=== PATIENT | female | born 1995 | race Two or more races ===

== ENCOUNTER 2022-08-29 16:32 | Emergency (ER) | payer OTHER ==
[2022-08-29 16:59] VITALS: RESP 18; BMI 33.6
[2022-08-29 18:41] VITALS: BP 107/71; PULSE 94; TEMP 98.9
[2022-08-29 19:39] LABS: BASO % 0.5 % (0-2.0); EOS % 0.9 % (0-4.5); HEMATOCRIT 40.9 % (32.4-45.2); HEMOGLOBIN 13.9 GM/dL (10.7-15.3); LYMPH % 23.5 % (8-40); MCH 29.4 pg (25.7-33.7); MEAN CELL VOLUME 86.3 fl (80-96); MEAN PLT VOLUME 7.7 fl (7.5-11.1); MONO % 7.6 % (3.8-10.2); NEUT % 67.5 % (42.8-82.8); PLATELET COUNT 263 10^3/uL (134-434); RBC 4.74 M/mm3 (3.60-5.2)
[2022-08-29 19:44] LABS: EPI CELLS >36 /uL (0-25.1); HYALINE CASTS 1 /uL (0-3.1); PH,URINE 5.5 (5.0-8.0); URINE APPEARANCE CLEAR; URINE BILIRUBIN NEGATIVE (NEGATIVE); URINE COLOR YELLOW; URINE GLUCOSE (UA) NEGATIVE (NEGATIVE); URINE KETONE NEGATIVE (NEGATIVE); URINE LEUK ESTERASE TRACE (NEGATIVE); URINE NITRITE NEGATIVE (NEGATIVE); URINE PROTEIN 1+ (NEGATIVE); URINE RBC 1496 /uL (0-23.9); URINE UROBILINOGEN 0.2 mg/dL (0.2-1.0); URINE WBC 48 /uL (0-25.8)
[2022-08-29 19:46] LABS: INR 1.09 (0.83-1.09); PROTHROMBIN TIME (PATIENT) 12.6 SEC (9.7-13.0)
[2022-08-29 19:49] LABS: ACTIVATED PTT 27.4 SECONDS (25.2-36.5)
[2022-08-29 19:57] LABS: POTASSIUM 4.3 mmol/L (3.5-5.1)
[2022-08-29 19:59] LABS: CALCIUM 9.3 mg/dL (8.5-10.1)
[2022-08-29 20:00] LABS: ALBUMIN 3.8 g/dl (3.4-5.0); BLOOD UREA NITROGEN 15.6 mg/dL (7-18)
[2022-08-29 20:03] LABS: CREATININE 0.5 mg/dL (0.55-1.3)
[2022-08-29 20:04] LABS: BILIRUBIN,TOTAL 0.3 mg/dL (0.2-1); TOT PROT 7.9 g/dl (6.4-8.2)
[2022-08-29 22:00] LABS: URINE BACTERIA 282.5 /uL (0-1359)
== END 2022-08-29 21:38 | disposition home or self-care (01) ==
LOC: JER 16:32
DX: O20.0 Threatened abortion (principal); R10.30 Lower abdominal pain, unspecified; Z3A.01 Less than 8 weeks gestation of pregnancy
CPT/HCPCS: 36415; 76817-TC; 80053; 81003; 84702; 85025; 85610; 85730; 86850; 86870; 86900; 86901; 86902; 87086; 99284-25

== ENCOUNTER 2022-09-01 09:57 | Emergency (ER) | payer OTHER ==
[2022-09-01 10:09] VITALS: BP 117/76; PULSE 93; RESP 16; TEMP 98.2; BMI 33.6
== END 2022-09-01 11:14 | disposition home or self-care (01) ==
LOC: JERFT 09:57
DX: O03.9 Complete or unspecified spontaneous abortion without complication (principal); Z3A.00 Weeks of gestation of pregnancy not specified
CPT/HCPCS: 36415; 84702; 99283-25

== ENCOUNTER 2023-07-07 14:13 | Emergency (ER) | payer OTHER ==
[2023-07-07] MEDS ORDERED: ADENOSINE 6 MG/2 ML VIAL IVPUSH ONE ×3 (14:21→14:26)
[2023-07-07 14:29] VITALS: BP 115/86; RESP 18; TEMP 98.5; BMI 36.8
[2023-07-07] MEDS: ADENOSINE 6 MG/2 ML VIAL IVPUSH ONE (14:35)
[2023-07-07 15:05] LABS: BASO % 0.5 % (0-2.0); EOS % 0.3 % (0-4.5); HEMOGLOBIN 12.6 GM/dL (10.7-15.3); LYMPH % 13.7 % (8-40); MCH 29.4 pg (25.7-33.7); MEAN CELL VOLUME 86.3 fl (80-96); MEAN PLT VOLUME 7.9 fl (7.5-11.1); MONO % 5.7 % (3.8-10.2); NEUT % 79.8 % (42.8-82.8); PLATELET COUNT 220 10^3/uL (134-434); RBC 4.29 M/mm3 (3.60-5.2); WHITE BLOOD COUNT 10.8 K/mm3 (4.0-10.0)
[2023-07-07 15:13] LABS: INR 1.06 (0.83-1.09); PROTHROMBIN TIME (PATIENT) 12.3 SEC (9.7-13.0)
[2023-07-07 15:15] LABS: ACTIVATED PTT 24.6 SECONDS (25.2-36.5)
[2023-07-07 15:18] LABS: POTASSIUM 3.8 mmol/L (3.5-5.1)
[2023-07-07 15:20] LABS: CALCIUM 8.7 mg/dL (8.5-10.1)
[2023-07-07 15:21] LABS: ALBUMIN 3.1 g/dl (3.4-5.0); BLOOD UREA NITROGEN 7.3 mg/dL (7-18); MAGNESIUM 1.9 mg/dL (1.8-2.4)
[2023-07-07 15:24] LABS: CREATININE 0.5 mg/dL (0.55-1.3)
[2023-07-07 15:25] LABS: BILIRUBIN,TOTAL 0.3 mg/dL (0.2-1); TOT PROT 6.9 g/dl (6.4-8.2)
[2023-07-07 15:29] LABS: N-TERMINAL BNP 73.1 pg/ml (5-125)
[2023-07-07 16:35] VITALS: PULSE 96
== END 2023-07-07 17:13 | disposition home or self-care (01) ==
LOC: JER 14:13
PROC: 3E033GC Introduction of Other Therapeutic Substance into Peripheral Vein, Percutaneous Approach (ICD-10-PCS; principal; 2023-07-07)
DX: O99.412 Diseases of the circulatory system complicating pregnancy, second trimester (principal); I47.10 Supraventricular tachycardia, unspecified; O26.892 Other specified pregnancy related conditions, second trimester; R07.89 Other chest pain; Z3A.17 17 weeks gestation of pregnancy; Z20.822 Contact with and (suspected) exposure to COVID-19
CPT/HCPCS: 0241U-QW; 36415; 76815-TC; 80053; 83735; 83880; 84484; 85025; 85610; 85730; 93005; 93010; 99283-25